=== PATIENT | female | born 1985 | race Caucasian/White ===

== ENCOUNTER 2021-11-02 03:54 | Inpatient (IN) ==
[2021-11-02] MEDS ORDERED: Ondansetron 4 MG/2 ML VIAL IVP PRN ×3 (05:56→17:46)
[2021-11-02] MEDS ORDERED: Naloxone 0.4 MG/ML INJ IVP PRN ×4 (05:56→17:46)
[2021-11-02] MEDS ORDERED: Acetaminophen 325 MG TABLET PO PRN ×2 (05:56→17:46)
[2021-11-02] MEDS ORDERED: Melatonin 3 MG TABLET PO PRN (05:56)
[2021-11-02] MEDS ORDERED: Ringers Solution, Lactated 1,000 ML IVC SCH ×3 (06:00→17:46)
[2021-11-02] MEDS ORDERED: Famotidine 20 MG/2 ML VIAL IVP ONE (06:00)
[2021-11-02] MEDS ORDERED: Ipratropium/Albuterol Neb 3 ML IH PRN ×2 (06:48→17:46)
[2021-11-02] MEDS ORDERED: D5% in Water 1,000 ML IVC PRN ×2 (07:25→17:46)
[2021-11-02] MEDS ORDERED: Dextrose 4 GM Chewable Tablets PO PRN ×4 (07:25→17:46)
[2021-11-02] MEDS ORDERED: *HR* Dextrose 50 % in Water (Syg) 50 ML SYRINGE IVP PRN ×2 (07:25→17:46)
[2021-11-02] MEDS ORDERED: Gadolinium Contrast Agent (WT Based) IV PRN ×2 (07:45→17:46)
[2021-11-02] MEDS ORDERED: Lactobacillus 1 EACH CAP.SPRINK PO SCH (09:00)
[2021-11-02] MEDS ORDERED: Nicotine 21 MG PATCH.TD24 TD SCH (09:00)
[2021-11-02] MEDS ORDERED: Gabapentin 300 MG CAPSULE PO SCH (09:00)
[2021-11-02 09:03] LABS: Basophils % 0.5 %; Eosinophils # 0.1 K/mcL (0.0-0.6); Eosinophils % 1.9 %; Hematocrit 42.7 % (35.3-44.9); Hemoglobin 14.2 g/dL (11.5-15.4); Immature Granulocytes % 0.3 % (0-4); Lymphocytes # 3.6 K/mcL (0.6-4.6); Lymphocytes % 48.1 %; Mean Corpuscular HGB Conc 33.3 g/dL (31.6-35.5); Mean Corpuscular Hemoglobin 32.2 pg (28.0-33.3); Mean Corpuscular Volume 96.8 fL (83.0-100.0); Mean Platelet Volume 8.8 fL (9.4-12.4); Monocytes # 0.7 K/mcL (0.0-1.3); Monocytes % 8.9 %; Platelet Count 171 K/mcL (140-400); Red Blood Count 4.41 M/mcL (3.82-4.97); Red Cell Distribution Width 13.2 % (11.5-14.5); Segmented Neutrophils % 40.3 %; White Blood Count 7.5 K/mcL (4.3-11.1)
[2021-11-02 09:14] LABS: INR 1.3; Prothrombin Time 14.7 Seconds (9.4-12.1)
[2021-11-02 09:17] LABS: Activated Partial Thrombo Time 36.7 Seconds (26.0-36.0)
[2021-11-02 09:25] LABS: Alanine Aminotransferase 27 Units/L (7-52); Albumin 3.2 g/dL (3.5-5.7); Albumin/Globulin Ratio 0.9 (1.1-2.2); Alkaline Phosphatase 142 Units/L (34-104); Aspartate Amino Transferase 41 Units/L (13-39); BUN/Creatinine Ratio 14 (6-26); Bilirubin,Total 0.9 mg/dL (0.3-1.0); Blood Urea Nitrogen 10 mg/dL (6-20); Calcium 8.6 mg/dL (8.6-10.3); Carbon Dioxide 22 mEq/L (23-29); Chloride 109 mEq/L (98-107); Globulin 3.7 g/dL (2.4-3.5); Glucose 103 mg/dL (70-105); Magnesium 1.8 mg/dL (1.6-2.6); Osmolality,Calculated 285 (280-300); Phosphorous 2.8 mg/dL (2.7-4.5); Potassium 3.5 mEq/L (3.5-5.1); Sodium 138 mEq/L (136-145); Total Protein 6.9 g/dL (6.4-8.9); eGFR For African Americans > 60 (> 60); eGFR For Non-African Americans > 60 (> 60)
[2021-11-02] MEDS ORDERED: *HR* LORazepam 2 MG/ML VIAL IVP ONE (11:04)
[2021-11-02 12:18] LABS: C-Reactive Protein 8 mg/L (Less than 10)
[2021-11-02] MEDS ORDERED: CeFAZolin Syr 2,000MG/20 ML 2,000 MG/20 ML SYRINGE IVPB ONE (14:18)
[2021-11-02] MEDS ORDERED: Albuterol 2.5 MG/3 ML NEBULIZER IH PRN ×2 (14:26→17:46)
[2021-11-02] MEDS ORDERED: Nitroglycerin 0.4 MG TAB.SUBL SL PRN ×2 (14:26→17:46)
[2021-11-02] MEDS ORDERED: Ringers Solution, Lactated 1,000 ML IVC ONE ×2 (15:00→17:46)
[2021-11-02] MEDS ORDERED: Lidocaine -MPF 2% 2 ML VIAL ONE (15:09)
[2021-11-02] MEDS ORDERED: *HR* Propofol 200 MG/20 ML VIAL IVP ONE (15:09)
[2021-11-02] MEDS ORDERED: Ondansetron 4 MG/2 ML VIAL ONE (15:09)
[2021-11-02] MEDS ORDERED: *HR* FentaNYL (PF) 100 MCG/2 ML VIAL ONE (15:09)
[2021-11-02] MEDS ORDERED: Ketamine HCL *QUVA* 50mg (1mL) SYRINGE ONE (15:24)
[2021-11-02] MEDS: *HR* FentaNYL (PF) 100 MCG/2 ML VIAL IVP PRN ×4 (15:59→16:17)
[2021-11-02] MEDS: *HR* HYDROmorphone PF 0.5 MG/0.5 ML SYRINGE IVP PRN ×2 (16:22→16:32)
[2021-11-02] MEDS ORDERED: Gabapentin 100 MG CAPSULE PO ONE (16:36)
[2021-11-02] MEDS ORDERED: *HR* Midazolam HCl 2 MG/2 ML VIAL IVP PRN (16:36)
[2021-11-02] MEDS ORDERED: Vancomycin 1,500 MG/265 ML IV.SOLN IVPB SCH (17:00)
[2021-11-02] MEDS ORDERED: *HR* HYDROcodone/Acet 5/325 mg TABLET PO ONE (17:19)
[2021-11-02] MEDS: Lactobacillus 1 EACH CAP.SPRINK PO SCH (20:01)
[2021-11-02] MEDS: Vancomycin 1,500 MG/265 ML IV.SOLN IVPB SCH (20:01)
[2021-11-02] MEDS: Melatonin 3 MG TABLET PO PRN (20:02)
[2021-11-02] MEDS: Gabapentin 300 MG CAPSULE PO SCH (20:02)
[2021-11-03] MEDS: *HR* Enoxaparin 40 MG/0.4 ML SYRINGE SQ SCH (05:20)
[2021-11-03] MEDS: Vancomycin 1,500 MG/265 ML IV.SOLN IVPB SCH ×2 (05:22→18:36)
[2021-11-03 05:43] LABS: Immature Granulocytes % 0.5 % (0-4); Lymphocytes # 0.8 K/mcL (0.6-4.6); Lymphocytes % 13.1 %; Mean Corpuscular HGB Conc 32.6 g/dL (31.6-35.5); Mean Corpuscular Hemoglobin 31.7 pg (28.0-33.3); Mean Corpuscular Volume 97.3 fL (83.0-100.0); Mean Platelet Volume 9.2 fL (9.4-12.4); Monocytes # 0.3 K/mcL (0.0-1.3); Monocytes % 4.3 %; Neutrophils # 5.2 K/mcL (1.6-8.9); Platelet Count 186 K/mcL (140-400); Red Blood Count 4.42 M/mcL (3.82-4.97); Red Cell Distribution Width 12.9 % (11.5-14.5); Segmented Neutrophils % 82.1 %; White Blood Count 6.3 K/mcL (4.3-11.1)
[2021-11-03 05:59] LABS: BUN/Creatinine Ratio 10 (6-26); Blood Urea Nitrogen 10 mg/dL (6-20); Calcium 8.8 mg/dL (8.6-10.3); Carbon Dioxide 23 mEq/L (23-29); Chloride 106 mEq/L (98-107); Glucose 289 mg/dL (70-105); Osmolality,Calculated 290 (280-300); Sodium 135 mEq/L (136-145); eGFR For African Americans > 60 (> 60); eGFR For Non-African Americans > 60 (> 60)
[2021-11-03] MEDS ORDERED: *HR* Enoxaparin 40 MG/0.4 ML SYRINGE SQ SCH (06:00)
[2021-11-03] MEDS: Lactobacillus 1 EACH CAP.SPRINK PO SCH ×2 (08:50→21:03)
[2021-11-03] MEDS: Gabapentin 300 MG CAPSULE PO SCH ×3 (08:50→21:03)
[2021-11-03] MEDS ORDERED: Nicotine 21 MG PATCH.TD24 TD SCH (09:00)
[2021-11-03 09:27] LABS: Estimated Average Glucose 117 mg/dl; Hemoglobin A1C 5.7 %
[2021-11-03] MEDS: Nicotine 21 MG PATCH.TD24 TD SCH (18:37)
[2021-11-03] MEDS: Melatonin 3 MG TABLET PO PRN (21:03)
[2021-11-03 23:39] VITALS: TEMP 97.9
[2021-11-04] MEDS: *HR* Enoxaparin 40 MG/0.4 ML SYRINGE SQ SCH (05:08)
[2021-11-04 05:25] LABS: Basophils % 0.1 %; Eosinophils % 0.3 %; Hematocrit 41.2 % (35.3-44.9); Hemoglobin 13.5 g/dL (11.5-15.4); Immature Granulocytes % 0.4 % (0-4); Lymphocytes # 1.5 K/mcL (0.6-4.6); Lymphocytes % 21.6 %; Mean Corpuscular HGB Conc 32.8 g/dL (31.6-35.5); Mean Corpuscular Hemoglobin 32.5 pg (28.0-33.3); Mean Platelet Volume 9.3 fL (9.4-12.4); Monocytes # 0.4 K/mcL (0.0-1.3); Monocytes % 5.9 %; Neutrophils # 4.8 K/mcL (1.6-8.9); Platelet Count 189 K/mcL (140-400); Red Blood Count 4.16 M/mcL (3.82-4.97); Red Cell Distribution Width 13.2 % (11.5-14.5); Segmented Neutrophils % 71.7 %; White Blood Count 6.8 K/mcL (4.3-11.1)
[2021-11-04 05:38] VITALS: BP 124/75; PULSE 84; O2SAT 95
[2021-11-04 05:42] LABS: Vancomycin,Trough 15 mcg/mL (5-10)
[2021-11-04] MEDS: Vancomycin 1,500 MG/265 ML IV.SOLN IVPB SCH (06:11)
[2021-11-04 07:57] LABS: BUN/Creatinine Ratio 22 (6-26); Blood Urea Nitrogen 16 mg/dL (6-20); Calcium 8.6 mg/dL (8.6-10.3); Carbon Dioxide 25 mEq/L (23-29); Chloride 106 mEq/L (98-107); Glucose 153 mg/dL (70-105); Osmolality,Calculated 288 (280-300); Sodium 137 mEq/L (136-145); eGFR For African Americans > 60 (> 60); eGFR For Non-African Americans > 60 (> 60)
[2021-11-04] MEDS: Gabapentin 300 MG CAPSULE PO SCH (08:13)
[2021-11-04] MEDS: Lactobacillus 1 EACH CAP.SPRINK PO SCH (08:13)
[2021-11-04] MEDS: Nicotine 21 MG PATCH.TD24 TD SCH (08:13)
== END 2021-11-04 14:52 | disposition home or self-care (01) | DRG 316 ==
LOC: 4WAOSI → SUATTDRO 05:26
PROVIDERS: ADMIT Internal Medicine; ATTEND Internal Medicine